=== PATIENT | female | born 1975 | race Two or more races ===

== ENCOUNTER 2018-04-19 08:48 | Emergency (ER) | payer MEDICAID ==
[~2018-04-19] VITALS: Ht 167.6 cm; Wt 65.8 kg
--- NOTE | 2018-04-19 09:00 | NUR ---
PATIENT TO ED DT HEADACHE X 3 DAYS, UNRELIEVED WITH OTC MEDICATION. VSS
[2018-04-19] MEDS ORDERED: KETOROLAC TROMETHAMINE INJ 30 MG/ML VIAL ONE (09:29)
[2018-04-19] MEDS ORDERED: PROCHLORPERAZINE EDISYLATE 10 MG/2 ML VIAL ONE (09:29)
[2018-04-19] MEDS: IV NS 0.9% 1,000 ML BAG IV ONE (09:39)
[2018-04-19] MEDS: PROCHLORPERAZINE EDISYLATE 10 MG/2 ML VIAL IVP ONE (09:59)
[2018-04-19] MEDS: KETOROLAC TROMETHAMINE INJ 30 MG/ML VIAL IV ONE (09:59)
[2018-04-19 11:37] VITALS: BP 148/80
--- NOTE | 2018-04-19 11:37 | NUR ---
PT. VERBALIZED UNDERSTANDING OF AFTERCARE INSTRUCTIONS.Patient discharged to home in stable condition. Written and verbal after care instructions given. Patient verbalizes understanding of instruction. Advised to follow up with PMD
--- NOTE | 2018-04-19 11:37 | NUR ---
IV removed. Catheter intact and site benign. Pressure and 4x4 applied to site. No bleeding noted.
== END 2018-04-19 11:38 | disposition home or self-care (01) ==
LOC: ER 08:50
DX: R51 Headache (principal)
CPT/HCPCS: 84703; 96374; 96375; 99284; A4606; J0780; J1885; J7030; Z7610

== ENCOUNTER 2021-11-18 17:15 | Emergency (ER) | payer MEDICAID ==
[~2021-11-18] VITALS: Ht 160 cm; Wt 64.4 kg
[2021-11-18 17:22] VITALS: BP 122/77
[2021-11-18] MEDS ORDERED: AMOX-430 PO (18:01)
== END 2021-11-18 18:21 | disposition home or self-care (01) ==
LOC: ER 17:17
DX: K14.6 Glossodynia (principal); H66.91 Otitis media, unspecified, right ear; G43.909 Migraine, unspecified, not intractable, without status migrainosus; Z79.899 Other long term (current) drug therapy

== ENCOUNTER 2021-12-05 15:12 | Emergency (ER) | payer MEDICAID ==
[~2021-12-05] VITALS: Ht 157.5 cm; Wt 63.5 kg
[~2021-12-05 15:12] MED LIST: AMOX-430 PO
--- NOTE | 2021-12-05 15:35 | NUR ---
BIBS C/O RIGHT EAR PAIN AND RIGHT SIDED HEADACHE X2WKS WORST TODAY, SEEN HERE 2WKS AGO FOR SAME REASONS, HX OF MIGRAINE. AMBULATORY, AAOX4, PLACED ON BED.
--- NOTE | 2021-12-05 15:45 | NUR ---
AT BED SIDE
[2021-12-05] MEDS ORDERED: PRED50TA PO (15:57)
--- NOTE | 2021-12-05 16:05 | NUR ---
Patient discharged to home in stable condition. Written and verbal after care instructions given. Patient verbalizes understanding of instruction.
[2021-12-05 16:10] VITALS: BP 129/82
== END 2021-12-05 16:09 | disposition home or self-care (01) ==
LOC: ER 15:12
DX: H92.01 Otalgia, right ear (principal); G43.909 Migraine, unspecified, not intractable, without status migrainosus; Z79.899 Other long term (current) drug therapy

== ENCOUNTER 2024-05-16 09:34 | Emergency (ER) | payer MEDICAID ==
[~2024-05-16] VITALS: Ht 157.5 cm; Wt 61.7 kg
[~2024-05-16 09:34] MED LIST changes: +PRED50TA PO
[2024-05-16 09:39] VITALS: BP 134/78; TEMP 97.8
[2024-05-16] MEDS ORDERED: GENT5DRO23 EACHEYE (09:49)
[2024-05-16 09:55] VITALS: O2SAT 99
== END 2024-05-16 09:55 | disposition home or self-care (01) ==
LOC: ER 09:39
DX: H11.31 Conjunctival hemorrhage, right eye (principal); Z79.52 Long term (current) use of systemic steroids; G43.909 Migraine, unspecified, not intractable, without status migrainosus